=== PATIENT | male | born 1990 | race Two or more races ===

== ENCOUNTER 2018-07-11 18:28 | Emergency (ER) | payer OTHER ==
[~2018-07-11] VITALS: Ht 160 cm; Wt 90.7 kg
[~2018-07-11 18:28] MED LIST: PERCOCET 10-321 EACH; SULINDAC150 MG; TRAMADOL HCL50 MG; ULTRAM50 MG
== END 2018-07-11 21:24 | disposition home or self-care (01) ==
LOC: ER 18:28
DX: B34.9 Viral infection, unspecified (principal)

== ENCOUNTER 2018-07-17 17:55 | Emergency (ER) | payer OTHER ==
[~2018-07-17] VITALS: Ht 160 cm; Wt 90.7 kg
[2018-07-17] MEDS ORDERED: TRAMADOL HCL50 MG (19:13)
[2018-07-17] MEDS ORDERED: CELECOXIB200 MG (19:14)
[2018-07-17] MEDS ORDERED: [UNRECOGNIZED DRUG - OTHER] (19:15)
== END 2018-07-17 22:44 | disposition home or self-care (01) ==
LOC: ER 17:55
DX: B34.9 Viral infection, unspecified (principal)

== ENCOUNTER 2019-03-03 17:17 | Emergency (ER) | payer OTHER ==
[~2019-03-03] VITALS: Ht 167.6 cm; Wt 90.7 kg
[~2019-03-03 17:17] MED LIST changes: +CELECOXIB200 MG; +[UNRECOGNIZED DRUG - OTHER]
[2019-03-03] MEDS ORDERED: TRAMADOL HCL50 MG (17:30)
== END 2019-03-03 22:53 | disposition home or self-care (01) ==
LOC: ER 17:17
DX: M72.2 Plantar fascial fibromatosis (principal)

== ENCOUNTER 2019-12-08 18:08 | Emergency (ER) | payer OTHER ==
[~2019-12-08] VITALS: Ht 175.3 cm; Wt 90.7 kg
[2019-12-08] MEDS ORDERED: FLEXERIL PO (18:15)
== END 2019-12-08 19:51 | disposition home or self-care (01) ==
LOC: ER 18:08
DX: M54.5 Low back pain (principal)

== ENCOUNTER 2019-12-09 22:41 | Emergency (ER) | payer OTHER ==
[~2019-12-09] VITALS: Ht 175.3 cm; Wt 90.7 kg
[~2019-12-09 22:41] MED LIST changes: +FLEXERIL PO
[2019-12-10] MEDS ORDERED: MOBIC15 MG PO (04:06)
== END 2019-12-10 04:20 | disposition home or self-care (01) ==
LOC: ER 22:41
DX: M62.830 Muscle spasm of back (principal); M54.89 Other dorsalgia

== ENCOUNTER 2021-04-16 15:18 | Emergency (ER) | payer OTHER ==
[~2021-04-16] VITALS: Ht 175.3 cm; Wt 92.1 kg
[~2021-04-16 15:18] MED LIST changes: +MOBIC15 MG PO
== END 2021-04-16 18:05 | disposition home or self-care (01) ==
LOC: ER 15:18
DX: S33.9XXA Sprain of unspecified parts of lumbar spine and pelvis, initial encounter (principal); S73.191A Other sprain of right hip, initial encounter; S83.8X1A Sprain of other specified parts of right knee, initial encounter; X50.0XXA Overexertion from strenuous movement or load, initial encounter; Y93.89 Activity, other specified; Y92.69 Other specified industrial and construction area as the place of occurrence of the external cause; Y99.8 Other external cause status

== ENCOUNTER → 2021-06-10 | Emergency (ER) | payer OTHER ==
[~2021-06-10] VITALS: Ht 175.3 cm; Wt 95.3 kg
== END | disposition home or self-care (01) ==
LOC: ER 17:29
DX: M72.2 Plantar fascial fibromatosis (principal); J11.1 Influenza due to unidentified influenza virus with other respiratory manifestations

== ENCOUNTER 2025-08-17 07:43 | Emergency (ER) | payer OTHER ==
[~2025-08-17] VITALS: Ht 175.3 cm; Wt 99.8 kg
[2025-08-17 08:21] VITALS: BP 116/77; O2SAT 98
[2025-08-17] MEDS ORDERED: ACETAMINOPHEN 500 MG GEL..CAP PO ONE ×2 (08:45→08:59)
[2025-08-17 09:33] LABS: BASO % 0.5 % (0.1-1.2); EOS # 0.11 (0.04-0.54); EOS % 1.4 % (0.7-7.0); LYMPH # 1.97 (1.18-3.74); LYMPH % 24.5 % (19.3-53.1); MEAN PLATELET VOLUME 9.80 fl (9.4-12.4); MONO # 0.88 (0.24-0.82); MONO % 11.0 % (4.7-12.5); NEUT # 5.00 (1.56-6.13); NEUT % 62.2 % (34.0-71.1); RED CELL DISTRIBUTION WIDTH 11.9 % (11.6-14.4)
[2025-08-17 10:16] LABS: COVID-19 AG NEGATIVE (NEGATIVE)
[2025-08-17 11:15] LABS: ALT/SGPT 29.0 U/L (12-78); AST/SGOT 16.0 U/L (15-37); BILIRUBIN TOTAL 0.6 mg/dL (0.3-1.2); BUN CREA RATIO 15.0 (7.0-25.0); CREATININE SERUM 0.93 mg/dL (0.70-1.30); GFR 93.01; GLOBULINA 3.2 G/DL (2.4-3.5); GLUCOSE FASTING 103.0 mg/dL (65-100); OSMOLALITY SERUM 282.0 MOSM/KG (275-295)
[2025-08-17] MEDS ORDERED: KETOROLAC TROMETHAMINE 30 MG VIAL IM ONE (11:45)
[2025-08-17] MEDS ORDERED: ORPHENADRINE CITRATE 30 MG/ML AMPUL IM ONE (11:45)
[2025-08-17] MEDS ORDERED: KETOROLAC TROMETHAMINE 30 MG VIAL ONE (12:53)
[2025-08-17] MEDS ORDERED: ORPHENADRINE CITRATE 30 MG/ML AMPUL ONE (12:53)
== END 2025-08-17 13:13 | disposition home or self-care (01) ==
LOC: ER 07:44
PROVIDERS: General Practice
DX: M54.2 Cervicalgia (principal); M62.838 Other muscle spasm; Z20.822 Contact with and (suspected) exposure to COVID-19